=== PATIENT | female | born 1970 | race Caucasian/White ===

== ENCOUNTER 2018-02-07 07:20 | Observation (INO) ==
[2018-02-07] MEDS ORDERED: Chlorhexidine Gluconate 2% 1 Pack (2 Cloths) TOPICAL ONE (07:50)
[2018-02-07] MEDS ORDERED: Metoprolol Tartrate 25 MG Tablet PO ONE (07:50)
[2018-02-07] MEDS ORDERED: Sodium Chlor 0.9% Inj 500 ML IV.SIG SCH (08:00)
[2018-02-07] MEDS ORDERED: ceFAZolin 2 GM Premix Inj 2 GM/50 ML PIGGYBACK IV.SIG PRN (08:00)
[2018-02-07] MEDS ORDERED: Bupivacaine/Epinephrine Inj 0.25% 50 ML Vial ONE (09:06)
[2018-02-07] MEDS ORDERED: Sugammadex Inj 200 MG/2 ML Vial IV.PUSH ONE (09:12)
[2018-02-07] MEDS ORDERED: Ibuprofen 600 MG Tablet PO PRN (11:41)
[2018-02-07] MEDS ORDERED: HYDROmorphone PF Inj 1 MG/ML Ampul IV.PUSH PRN (11:41)
[2018-02-07] MEDS ORDERED: fentaNYL Citrate Inj 100 MCG/2 ML Ampul ONE (12:03)
[2018-02-07] MEDS ORDERED: Morphine Inj 4 MG/ML Vial ONE (12:03)
[2018-02-07] MEDS ORDERED: *Meperidine Inj 25 MG/ML Vial PERIprocedural Use ONLY ONE (12:08)
--- NOTE | 2018-02-07 12:23 | MP ---
cc: Radha Barillas MD, [place] DATE OF OPERATION: PREOPERATIVE DIAGNOSES: 1. Enlarged uterus. 2. Menorrhagia. 3. Submucosal fibroid. POSTOPERATIVE DIAGNOSES: 1. Enlarged uterus. 2. Menorrhagia. 3. Submucosal fibroid. 4. Endometriosis. PROCEDURE: Examination under anesthesia, laparoscopic-assisted supracervical hysterectomy, bilateral salpingo-oophorectomy, lysis of adhesions, cystoscopy. SURGEON: Dr. Barillas. ANESTHESIA: General endotracheal anesthesia. FLUIDS: 1000 mL crystalloids. ESTIMATED BLOOD LOSS: 100 mL URINE OUTPUT: 300 mL of clear yellow at the end of the procedure. FINDINGS: Enlarged uterus approximately 12-14 weeks in size. Endometriosis and adhesions were noted in the posterior cul-de-sac. The tubes demonstrated evidence of previous bilateral tubal ligation with a clip. The ovaries appeared normal. The right ovary was extremely adherent to the right pelvic sidewall. At cystoscopy, urine was noted to be effluxing from both ureteral meatuses. PROCEDURE: The patient was taken to the operating room where general anesthesia was found to be adequate. She was then prepped and draped in the normal sterile fashion in the dorsal lithotomy position. A Nash catheter was inserted into the urinary bladder using sterile technique. A speculum was placed in the vagina. A single-tooth tenaculum applied to the anterior lip of the cervix. A medium V-Care uterine manipulator was then placed through the cervix. The balloon was inflated. A suture was placed on the anterior lip of the cervix. The cups were positioned. The tenaculum was removed. The speculum was removed. The gloves were changed and attention was turned to the abdominal portion of the procedure. A 5 mm incision was made just above the umbilicus and a 5 mm trocar and camera were inserted into the abdominal cavity under direct visualization. The abdomen was then insufflated with approximately 3.5 liters of CO2 gas. A 5 mm trocar was placed in the right lower quadrant and a 10 mm - 12 mm trocar placed in the left lower quadrant under direct visualization. The uterus was noted to be enlarged, occupied most of the pelvic space; endometriosis was noted in the posterior cul-de-sac with adhesions between the uterus and the cul-de-sac, evidence of previous bilateral tubal ligation was noted. The right ovary was noted to be extremely adherent to the right pelvic sidewall. The round ligaments were transected bilaterally with some difficulty due to the size of the uterus and the configuration of the pelvis. The bladder flap was created using the Harmonic scalpel. The left infundibulopelvic ligament was transected using the Harmonic scalpel and the broad ligament, cardinal ligament and uterine artery on the left side were transected using the Harmonic scalpel. The right uteroovarian ligament, was transected using the Harmonic scalpel and the dissection was continued through the broad ligament, cardinal ligament and uterine artery on the right side down to the level of the cervix using the Harmonic scalpel. The uterus was amputated from the cervix with difficulty due to the large fibroid. The Novapost-Curiosidy uterine manipulator was removed. Packing was placed in the vagina. The right infundibulopelvic ligament was transected using the Harmonic scalpel staying extremely close to the right tube and ovary due to the dense adhesions between the right tube and ovary and the right pelvic sidewall. The right tube and ovary were then dissected from the right pelvic sidewall and sent to pathology. The uterus was extracted and sent to pathology. The left tube and ovary were extracted and sent to pathology. Hemostasis was noted from the pedicles. The pelvis was suctioned. The endocervical canal was cauterized using the Harmonic scalpel. Juliette was placed over the cervical stump and the pedicles for hemostasis. The crossbow suture passer was used to place an 0-Vicryl suture through the fascia and peritoneum of the left lower quadrant incision and the suture was tied. The gas was allowed to escape. All the instruments were removed from the abdominal cavity and the skin incisions were closed with 4-0 Monocryl. The packing was then removed from the vagina. The Nash was used to instill approximately 250 mL of saline into the urinary bladder. The Nash catheter was removed. Cystoscopy was performed and urine was noted to be effluxing from both of the ureteral meatuses. No bladder injury was noted. The cystoscope was removed. The Nash catheter was replaced. A speculum was placed in the vagina and the suture was cut from the anterior lip of the cervix. Hemostasis was noted vaginally. Sponge, lap, needle and instrument counts were correct. The patient was awakened from anesthesia and transferred to recovery room in stable condition. PATHOLOGY: Uterus, bilateral fallopian tubes, and bilateral ovaries. Incidentally at laparoscopy, there were adhesions between the omentum and the bowel and the right abdominal wall, but the liver was noted to be free of adhesions. MD BYRON Barnett/andreina , 11:58 AM , 12:07 PM [email or web address]
[2018-02-07] MEDS ORDERED: Zolpidem Tartrate 5 MG Tablet PO PRN (13:00)
[2018-02-07] MEDS ORDERED: *morphine SULFATE 4 MG/ML PERIprocedure ONLY ONE (13:03)
[2018-02-07] MEDS: HYDROmorphone PF Inj 1 MG/ML Ampul IV.PUSH PRN ×3 (14:34→22:56)
[2018-02-07] MEDS: Docusate Sodium 100 MG Capsule PO SCH (21:50)
[2018-02-08 00:12] VITALS: RESP 18
[2018-02-08] MEDS ORDERED: Ibuprofen 600 MG Tablet PO ONE (03:30)
[2018-02-08 05:41] LABS: Baso % (Auto) 0.2 % (0.0-2.0); Eos % (Auto) 0.3 % (0.0-4.0); Hematocrit 34.9 % (35.0-46.0); Hemoglobin 11.8 gm/dL (11.6-15.3); Lymph # (Auto) 2.4 th/mm3 (1.0-4.8); Lymph % (Auto) 17.7 % (9.0-44.0); Mean Corpuscular HGB Conc 33.9 % (32.0-36.0); Mean Corpuscular Hemoglobin 31.2 pg (27.0-34.0); Mean Platelet Volume 9.5 fL (7.0-11.0); Mono # (Auto) 1.1 th/mm3 (0.0-0.9); Neut # (Auto) 10.1 th/mm3 (1.8-7.7); Neut % (Auto) 73.8 % (16.0-70.0); Platelet Count 227 th/mm3 (150-450); Red Blood Count 3.79 mil/mm3 (4.00-5.30); Red Cell Distribution Width 13.6 % (11.6-17.2); White Blood Count 13.6 th/mm3 (4.0-11.0)
--- NOTE | 2018-02-08 08:06 | P.OBGPN ---
s/p LASH/BSO/KRISSY POD #1 doing well, cbc stable, no VB, pain controlled VSS afeb Abd- soft, ND, incisions C/D/I VE: scant spots on pad Ext : no ECC, NT A/P: enlarged uterus, menorrhagia, pain, endometriosis POD #1 d/c home with po motrin, percocet precautions rev'd rto 2 wks
[2018-02-08 08:54] VITALS: BP 146/81; PULSE 62; TEMP 97.9; O2SAT 95
[2018-02-08] MEDS: Docusate Sodium 100 MG Capsule PO SCH (09:23)
== END 2018-02-08 11:18 | disposition home or self-care (01) ==
LOC: HSDC 07:20 → HSDI 07:20 → H1EA 14:47
PROVIDERS: ADMIT Obstetrics & Gynecology; ATTEND Obstetrics & Gynecology
PROC: LAPLASH (ICD-10-PCS; 2018-02-07 09:29)